=== PATIENT | female | born 1990 | race Caucasian/White ===

== ENCOUNTER 2021-06-13 02:53 | Emergency (ER) | payer BC, OTHER ==
--- OUTSIDE RECORDS SUMMARY | 2021-06-13 02:56 | XMS REPORT | Continuity of Care Document ---
:1990 Author Organization [facility] t Address [address] [place] [address] 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 Family History Family Member Diagnosis Comments Start Date Stop Date Source Mother Family history of [facility] [place] hypertension Physicians Father Family history of [facility] [place] diabetes mellitus Physici ans Father Family history of [facility] [place] hypertension Physicians Social History Smoking Status Start Date Stop Date Source Never smoker [facility] Medications Ordered Filled Start Stop Current Ordering Indication Dosage Frequency Signature Comments Components Source Medication Medication Date Date Medication? Clinician (SIG) Name Name Blisovi FE Blisovi FE 2018-07 Yes FRANCK QD TAKE 1 Univers 07/29-07/29 2-13 PAPAIOANNO TABLET ity of MG-MCG Oral MG-MCG Oral 00:00: U P.A. DAILY [place] Tablet Tablet 00 DIRECTED. Physic i ans Adderall 20 Adderall 20 Yes 1 QD TAKE 1 Univers MG Oral MG Oral 9-04 TABLET ity of Tablet Tablet 00:00: DAILY. [place] 00 Physici ans Terconazole Terconazole Yes FRANCK INSERT 1 Univers 0.8 % 0.8 % 03-13 PAPAIOANNO APPLICATOR i ty of Vaginal Vaginal 00:00: U P.A. FUL [place] Cream Cream 00 INTRAVAGIN Physici ALLY AT ans BEDTIME NIGHTLY x 10 days. Fluconazole Fluconazole Yes EDUARDO QD TAKE 1 Univers 150 MG Oral 150 MG Oral 03-13 YOLANDA TABLET ity of Tablet Tablet 00:00: N.P. DAILY 00 DIRECTED. Physici ans Nystatin Nystatin Yes EDUARDO Nystatin Univers Powder Powder 03-13 YOLANDA topical ity o f 00:00: N.P. powder 100,000 Physici unit/gram ans Vital Signs Vital Name Observation Time Observation Value Comments Source BP Systolic 2019-06-12 123 mm[Hg] [facility] 15:06:00 Position: [place] [facility]ician s Sitting BP Diastolic 2019-06-12 82 mm[Hg] Location[facility] 15:06:00 Position: [place] Physician s Sitting Height 2019-06-12 169 cm [facility] 15:06:00 [place] Physician s Weight 2019-06-12 146 [lb_av] University of 15:06:00 [place] Physician s Body Mass Index 2019-06-12 23.19 kg/m2 University o f Calculated 15:06:00 [place] Physician s Temperature 2019-06-12 98.2 [degF] Method: Oral [facility] 15:06:00 [place] [facility] s Heart Rate 2019-06-12 103 /min [facility] 15:06:00 [place] Phys[facility] s Respiration Rate 2019-06-12 18 /min [facility] 15:06:00 [place] Physician s BP Systolic 2019-03-13 127 mm[Hg] [facility] 10:[facility] Position: [place] Physician s Sitting BP Diastolic 2019-03-13 84 mm[Hg] Location: [facility] 10:43:00 Position: [place] Physician s Sitting Height 2019-03-13 168.4 cm [facility] 10:43:00 [place] Physician s Weight 2019-03-13 65.99 kg [facility] 10:43:00 [place] Physician s Body Mass Index 2019-03-13 23.27 kg/m2 University o f Calculated 10:43:00 [place] Physician s Temperature 2019-03-13 98.8 [degF] Method: Oral [facility] 10:43:00 [place] [facility] s Heart Rate 2019-03-13 88 /min [facility] 10:43:00 [place] [facility] s Respiration Rate 2019-03-13 17 /min [facility] 10:43:00 [place] [facility] s O2 SAT 2019-03-13 100 % Source: [facility] 10:43:00 [place] [facility] s Procedures Procedure Date / Time Performed Performing Clinician Sourc e [QLH] HEMOGLOBIN A1c 2019-03-13 00:00:00 [facility] ity [facility] Physicians [QLH] HCG, TOTAL, QN 2019-03-13 00:00:[address] [facility] Physicians [QLH] HCG, QL, URINE 2019-03-13 00:00:00 [facility] ity [facility] Physicians . [facility] - PAP 2019-03-13 00:00:00 [facility] [place] [facility] . [facility] - Affirm 2019-03-13 00:00:00 [facility] VPIII (BV Panel) Physicians Encounters Start End Encounter Admission Attending Care Care Encounter Source Date/Time Date/Time Type Type Clinicians Facility Department ID 2019-06-12 2019-06-12 KODY Farrell [facility]nec[facility] [id number] Univers 15:00:00 15:00:00 t; KARISHMA MILLER Oncology - itNidhi M.D. [facility] as [facility] Physici ans 2019-03-13 2019-03-13 AppointKODY Younger [facility]nec[facility] [id number] Univers 10:20:00 10:20:00 t; KARISHMA MILLER Oncology - itNidhi M.D. [facility] as [facility] Physici ans Results Test Description Test Time Test Comments Results Result Comments Source [QLH] HCG, QL, URINE 2019-03-13 16:50:01 Test Item Value Reference Range Interpretation Comme nts Urine Test (test code = 2106-3) Negative Negative University [facility] Physicians[QL] HEMOGLOBIN [id number] 12:30:01 Test Item Value Reference Range Interpretation Comments Hemoglobin A1c (test code = 4548-4) 5.3 % <=5.6 [facility] [id number] 00:00:00 Test Item Value Reference Range Interpretation Comments REPORT (test code = REPORT) See Comment [facility]
[2021-06-13 03:16] LABS: Urine Blood 3+ (Negative); Urine Glucose Negative (Negative); Urine Protein 2+ (Negative); Urine Specific Gravity >=1.030 (1.005-1.030); Urine pH 5.5 (5.0-7.0)
[2021-06-13] MEDS ORDERED: ONDANSETRON 4 MG/2 ML VIAL ONE (03:37)
[2021-06-13] MEDS ORDERED: CEFTRIAXONE 1000 MG/VIAL ONE ×2 (03:37→03:41)
[2021-06-13] MEDS ORDERED: MORPHINE 4 MG/ML SYR ONE (03:37)
[2021-06-13] MEDS ORDERED: NA CHLORIDE 0.9% 1,000 ML ONE ×2 (03:37→04:34)
[2021-06-13 04:05] LABS: Urine Bacteria 20-50 /HPF (<20); Urine Mucus 2+ /HPF (NONE SEEN); Urine RBC 20-50 /HPF (NONE SEEN)
[2021-06-13 04:24] LABS: Absolute Lymphocytes (CBC) 1.7 K/uL (0.7-4.9); Basophils % 0.4 % (0-1.3); Hematocrit 37.7 % (36.0-45.0); Lymphocytes % 15.5 % (15.3-44.8); MPV 8.1 fL (7.6-11.3); RBC Red Blood Cell Count 4.34 M/uL (3.86-4.86)
[2021-06-13 04:47] LABS: ALT/SGPT 17 U/L (12-78); AST/SGOT 13 U/L (15-37); Albumin 3.8 g/dL (3.4-5.0); Alkaline Phosphatase 74 U/L (45-117); BUN Blood Urea Nitrogen 14 mg/dL (7-18); Bicarbonate 25 mmol/L (21-32); Bilirubin Direct 0.2 mg/dL (0-0.2); Bilirubin Total 0.7 mg/dL (0.2-1.0); Glucose Level 98 mg/dL (74-106); Lipase 121 U/L (73-393); Potassium 3.6 mmol/L (3.5-5.1); Protein, Total 7.9 g/dL (6.4-8.2); Sodium Level 140 mmol/L (136-145)
--- NOTE | 2021-06-13 06:13 | ER ---
Nurse's Notes [facility] Name: Lottie Horvath Age: 31 yrs Sex: Female : 1990 Arrival Date: 06/13/2021 Time: 02:57 Bed 15 Private MD: Diagnosis: Pyelonephritis acute Presentation: 06/13 03:04 Chief complaint: Patient states: Woke with severe pain to left flank, pain with lp1 urination; Denies fever, N/V. Coronavirus screen: At this time, the client does not indicate any symptoms associated with coronavirus-19. Ebola Screen: No symptoms or risks identified at this time. Risk Assessment: Do you want to hurt yourself or someone else? Patient reports no desire to harm self or others. Onset of symptoms was June 13, 2021. 03:04 Method Of Arrival: Ambulatory lp1 03:04 Acuity: JEFFERY 4 lp1 03:08 Initial Sepsis Screen: Does the patient meet any 2 criteria? No. Patient's initial lp1 sepsis screen is negative. Does the patient have a suspected source of infection? No. Patient's initial sepsis screen is negative. Triage Assessment: 03:00 General: Appears distressed, uncomfortable. Pain: Complains of pain in right mid back. 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 - Social history:: Smoking status: Patient denies any tobacco usage or history of. Screenin:17 Abuse screen: Denies threats or abuse. Denies injuries from another. Nutritional lp1 screening: No deficits noted. Tuberculosis screening: No symptoms or risk factors identified. Fall Risk None identified. Assessment: 03:10 General: Appears in no apparent distress. Behavior is calm, cooperative, appropriate lp1 for age. Pain: Complains of pain in right low back Pain currently is 8 out of 10 on a pain scale. Quality of pain is described as sharp, Pain began suddenly, Is continuous. Neuro: No deficits noted. Cardiovascular: Patient's skin is warm and dry. Respiratory: Respiratory effort is even, unlabored. GI: Abdomen is flat, non-distended. : Urine is cloudy, Reports burning with urination, pain in right flank(s). EENT: No signs and/or symptoms were reported regarding the EENT system. Derm: Skin is pink, warm \T\ dry. Musculoskeletal: No deficits noted. Vital Signs: 03:08 BP 139 / 92; Pulse 86; Resp 18; Temp 97.8(O); Pulse Ox 97% on R/A; Weight 70.31 kg (R); lp1 Height 5 ft. 6 in. (167.64 cm); Pain 8/10; 03:08 Body Mass Index 25.02 (70.31 kg, 167.64 cm) lp1 ED Course: 02:57 Patient arrived in ED. 03:06 Triage completed. lp1 03:22 Jacoby Rogers MD is Attending Physician. [facility] 03:32 Arpit Maher, RN is Primary Nurse. mr2 04:30 No provider procedures requiring assistance completed. mr2 05:13 CT Abd/Pelvis - IV Contrast Only In Process Unspecified. EDMS 05:17 Patient has correct armband on for positive identification. lp1 05:17 Arm band placed on. lp1 05:55 IV discontinued. mr2 Administered Medications: 03:40 Drug: NS 0.9% 1000 ml Route: IV; Rate: 1000 ml; Site: right antecubital; mr2 03:40 Drug: morphine 4 mg Route: IVP; Site: right antecubital; mr2 03:40 Drug: Zofran (Ondansetron) 4 mg Route: IVP; Site: right antecubital; mr2 03:40 Drug: Rocephin (cefTRIAXone) 1 grams Route: IV; Rate: per protocol; Site: right mr2 antecubital; Outcome: 06:12 Discharge ordered by . [facility] 06:30 Discharged to home ambulatory. mr2 06:30 Condition: stable 06:30 Discharge instructions given to patient, Instructed on discharge instructions, medication usage, Prescriptions given X 3. 06:50 Patient left the ED. mr2 Signatures: Dispatcher [employer] EDMS Marija Nieves RN RN 1 Jacoby Rogers MD MD [facility] Parris Garza Mike, RN RN mr2
--- NOTE | 2021-06-13 06:13 | EDPHYS ---
Physician Documentation [facility] Name: Lottie Horvath Age: 31 yrs Sex: Female : 1990 Arrival Date: 06/13/2021 Time: 02:57 Bed 15 Private MD: ED Physician Jacoby Rogers HPI: 06/13 03:32 This 31 yrs old Female presents to ER via Ambulatory with complaints of Possible Kidney mh7 Stone, Pain With Urination. 03:32 The patient complains of pain in the right flank. mh7 03:32 The pain does not radiate. mh7 03:32 Onset: The symptoms/episode began/occurred last night. Modifying factors: The symptoms mh7 are alleviated by nothing. the symptoms are aggravated by movement, palpation/percussion. Associated signs and symptoms: Pertinent positives: dysuria, urinary frequency, For 2 to 3 days, Pertinent negatives: diarrhea, dizziness, fever, headache, hematuria, nausea, pain radiating to the lower extremities, vomiting. Severity of pain: At its worst the pain was moderate last night, in the emergency department the pain is unchanged. 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 - Social history:: Smoking status: Patient denies any tobacco usage or history of. ROS: 03:32 Constitutional: Negative for fever, chills, and weight loss, Eyes: Negative for injury, mh7 pain, redness, and discharge, ENT: Negative for injury, pain, and discharge, Neck: Negative for injury, pain, and swelling, Cardiovascular: Negative for chest pain, palpitations, and edema, Respiratory: Negative for shortness of breath, cough, wheezing, and pleuritic chest pain, Abdomen/GI: Negative for abdominal pain, nausea, vomiting, diarrhea, and constipation, MS/Extremity: Negative for injury and deformity, Skin: Negative for injury, rash, and discoloration, Neuro: Negative for headache, weakness, numbness, tingling, and seizure, Psych: Negative for depression, anxiety, suicide ideation, homicidal ideation, and hallucinations, Allergy/Immunology: Negative for hives, rash, and allergies, Endocrine: Negative for neck swelling, polydipsia, polyuria, polyphagia, and marked weight changes, Hematologic/Lymphatic: Negative for swollen nodes, abnormal bleeding, and unusual bruising. Exam: 03:32 Head/Face: Normocephalic, atraumatic. Eyes: Pupils equal round and reactive to light, mh7 extra-ocular motions intact. Lids and lashes normal. Conjunctiva and sclera are non-icteric and not injected. Cornea within normal limits. Periorbital areas with no swelling, redness, or edema. Neck: Trachea midline, no thyromegaly or masses palpated, and no cervical lymphadenopathy. Supple, full range of motion without nuchal rigidity, or vertebral point tenderness. No Meningismus. Chest/axilla: Normal chest wall appearance and motion. Nontender with no deformity. No lesions are appreciated. Cardiovascular: Regular rate and rhythm with a normal S1 and S2. No gallops, murmurs, or rubs. Normal PMI, no JVD. No pulse deficits. Respiratory: Lungs have equal breath sounds bilaterally, clear to auscultation and percussion. No rales, rhonchi or wheezes noted. No increased work of breathing, no retractions or nasal flaring. Abdomen/GI: Soft, non-tender, with normal bowel sounds. No distension or tympany. No guarding or rebound. No evidence of tenderness throughout. 03:32 Skin: Warm, dry with normal turgor. Normal color with no rashes, no lesions, and no evidence of cellulitis. MS/ Extremity: Pulses equal, no cyanosis. Neurovascular intact. Full, normal range of motion. Neuro: Awake and alert, GCS 15, oriented to person, place, time, and situation. Cranial nerves II-XII grossly intact. Motor strength 5/5 in all extremities. Sensory grossly intact. Cerebellar exam normal. Normal gait. Psych: Awake, alert, with orientation to person, place and time. Behavior, mood, and affect are within normal limits. 03:32 Constitutional: The patient appears in no acute distress, alert, awake, uncomfortable. 03:32 Back: normal spinal alignment noted, CVA tenderness, that is moderate, is noted on the right, muscle spasm, is not present. 03:32 : CVA tenderness, on the right. Vital Signs: 03:08 BP 139 / 92; Pulse 86; Resp 18; Temp 97.8(O); Pulse Ox 97% on R/A; Weight 70.31 kg (R); lp1 Height 5 ft. 6 in. (167.64 cm); Pain 8/10; 03:08 Body Mass Index 25.02 (70.31 kg, 167.64 cm) lp1 MDM: 06:10 Differential diagnosis: nephrolithiasis, pyelonephritis, UTI. Data reviewed: vital [facility] signs, nurses notes, lab test result(s), CBC, electrolytes, urinalysis, UPT: negative radiologic studies, CT scan. Data interpreted: Pulse oximetry: on room air is 97 %. Interpretation: normal. Counseling: I had a detailed discussion with the patient and/or guardian regarding: the historical points, exam findings, and any diagnostic results supporting the discharge/admit diagnosis, the presence of at least one elevated blood pressure reading (>120/80) during this emergency department visit, lab results, radiology results, the need for outpatient follow up, to return to the emergency department if symptoms worsen or persist or if there are any questions or concerns that arise at home. Response to treatment: the patient's symptoms have markedly improved after treatment. 06:12 Patient medically screened. [facility] 06/13 03:15 Order name: Urine Dipstick-Ancillary; Complete Time: 03:31 EDMS 06/13 03:18 Order name: Urine Microscopic Only; Complete Time: 04:15 lp1 06/13 03:30 Order name: Basic Metabolic Panel [facility] 06/13 03:30 Order name: CBC with Diff [facility] 06/13 03:30 Order name: Hepatic Function [facility] 06/13 03:30 Order name: Lipase [facility] 06/13 03:30 Order name: CT Abd/Pelvis - IV Contrast Only [facility] 06/13 03:31 Order name: Urine Culture [facility] 06/13 03:31 Order name: Basic Metabolic Panel; Complete Time: 04:50 EDMS 06/13 03:31 Order name: CBC with Automated Diff; Complete Time: 04:41 EDMS 06/13 03:31 Order name: Liver (Hepatic) Function; Complete Time: 04:50 EDMS 06/13 03:31 Order name: Lipase; Complete Time: 04:50 EDMS 06/13 04:30 Order name: Urine --Ancillary (enter results); Complete Time: 05:53 cs9 06/13 03:10 Order name: Urine Dipstick-Ancillary (obtain specimen); Complete Time: 03:21 lp1 06/13 03:10 Order name: Urine Test (obtain specimen); Complete Time: 03:21 lp1 06/13 03:30 Order name: IV Saline Lock [facility] 06/13 03:30 Order name: Labs collected and sent [facility] Administered Medications: 03:40 Drug: NS 0.9% 1000 ml Route: IV; Rate: 1000 ml; Site: right antecubital; mr2 03:40 Drug: morphine 4 mg Route: IVP; Site: right antecubital; mr2 03:40 Drug: Zofran (Ondansetron) 4 mg Route: IVP; Site: right antecubital; mr2 03:40 Drug: Rocephin (cefTRIAXone) 1 grams Route: IV; Rate: per protocol; Site: right mr2 antecubital; Disposition Summary: 06/13/21 06:12 Discharge Ordered Location: Home [facility] Problem: new [facility] Symptoms: have improved [facility] Condition: Stable [facility] Diagnosis - Pyelonephritis acute [facility] Followup: [facility] - With: Private Physician - When: 1 - 2 days - Reason: Worsening of condition, Recheck today's complaints, Continuance of care, Re-evaluation by your physician Discharge Instructions: - Discharge Summary Sheet [facility] - Pyelonephritis, Adult, [id number] [facility] Forms: - Medication Reconciliation Form [facility] - Thank You Letter [facility] - Antibiotic Education [facility] - Prescription Opioid Use [facility] Prescriptions: - Ibuprofen 800 mg Oral Tablet - take 1 tablet by ORAL route every 8 hours As needed take with food; 15 tablet; [facility] Refills: 0, Product Selection Permitted - Cipro 500 mg Oral Tablet - take 1 tablet by ORAL route every 12 hours for 10 days; 20 tablet; Refills: 0, [facility] Product Selection Permitted Signatures: Dispatcher [employer] EDCT Marija Nieves RN RN lp1 Jacoby Rogers MD MD 7 Arpit Maher RN RN mr2 Corrections: (The following items were deleted from the chart) 04:28 03:21 URINE --ANCILLARY+[email or web address] ordered. EDMS EDMS
[2021-06-13 06:55] VITALS: BP 139/92; TEMP 97.8; O2SAT 97
--- NOTE | 2021-06-13 13:54 | RAD REPORT ---
EXAM DESCRIPTION: CT - Abdomen Pelvis W Contrast - 06/13/2021 6:50 am CLINICAL HISTORY: The patient is 31 years old and is Female; FLANK PAIN TECHNIQUE: Axial computed tomography images of the abdomen and pelvis with intravenous contrast. S agittal and coronal reformatted images were created and reviewed. This CT exam was performed using one or more of the following dose reduction techniques: automated exposure control, adjustment of t he mA and/or kV according to patient size, and/or use of iterative reconstruction technique. COMPARISON: No relevant prior studies available. FINDINGS: Lung bases: Unremarkable. No mass. No consolidation. ABDOMEN: Liver: Unremarkable. No mass. Gallbladder and bile ducts: Unremarkable. No calcified stones. No ductal dilation. Pancreas: No findings to suggest acute pancreatitis. No mass visualized. No ductal dilation. Spleen: Unremarkable. No splenomegaly. Adrenals: Unremarkable. No mass. Kidneys and ureters: No nephrolithiasis, hydronephrosis or ureter stone visualized. No findings t o suggest pyelonephritis. Stomach and bowel: No bowel dilatation or obstruction. No bowel wall thickening. PELVIS: Appendix: The visualized appendix is normal. No pericecal inflammation to suggest acute appendici tis. Bladder: Unremarkable. No mass. Reproductive: Retroverted uterus. No adnexal mass. ABDOMEN and PELVIS: Intraperitoneal space: Unremarkable. No free air. No significant fluid collection. Bones/joints: No acute fracture. No dislocation. Soft tissues: Unremarkable. Vasculature: Unremarkable. No abdominal aortic aneurysm. Lymph nodes: No pathologically enlarged lymph nodes. IMPRESSION: 1. No nephrolithiasis, hydronephrosis or ureter stone visualized. No findings to sugge st pyelonephritis. 2. Normal appendix. Electronically signed by: Camille Brunner MD 06/13/2021 5:37 AM BRAKES INSPECTOR Due to temporary technical issues with the PACS/Fluency reporting system, reports are being signed by the in house radiologists without review as a courtesy to insure prompt reporting. The interpreting radiologist is fully responsible for the content of the report.
== END 2021-06-13 06:50 | disposition home or self-care (01) ==
LOC: ER 02:53
DX: N10 Acute pyelonephritis (principal)
CPT/HCPCS: 87088; 85025; 87086; 80048; 36415; 81025; 80076; 87077; 87186; 83690; 74177; 96375; 96374; 99283; Q9967; J7030 ×2; J2405; 81003; 81015